=== PATIENT | male | born 1970 | race Caucasian/White ===

== ENCOUNTER 2021-07-24 06:47 | Emergency (ER) | payer OTHER ==
[~2021-07-24] VITALS: Ht 172.7 cm; Wt 93.1 kg
[2021-07-24] MEDS ORDERED: CHLO473M2 PO ×2 (07:30)
[2021-07-24] MEDS ORDERED: ONDANSETRON HCL 4MG/2ML INJ IV STA (07:34)
[2021-07-24] MEDS ORDERED: MORPHINE SULFATE 4 MG/ML CPJ (NOT FOR IM USE) IV STA (07:34)
[2021-07-24] MEDS ORDERED: SODIUM CHLORIDE 0.9% 1,000 ML IV ONE (07:45)
[2021-07-24 07:49] LABS: BASOPHILS % 0.1 % (0.0-2.0); EOSINOPHILS % 2.6 % (0.0-5.0); HEMATOCRIT. 46.6 % (42.0-52.0); HEMOGLOBIN. 16.2 g/dL (14.0-18.0); LYMPHOCYTES % 9.6 % (20.0-50.0); MEAN CORPUSCULAR HEMOGLOBIN 31.5 pg (28.0-32.0); MEAN CORPUSCULAR VOLUME 90.5 fL (80.0-94.0); MEAN PLATELET VOLUME 7.7 fl (7.4-10.4); MONOCYTES % 5.4 % (2.0-8.0); NEUTROPHILS % 82.3 % (40.0-76.0); PLATELET 222 x1000/uL (130-400); RED BLOOD CELL COUNT 5.15 mill/uL (4.7-6.1); RED CELL DISTRIBUTION WIDTH 13.6 % (11.6-14.6)
[2021-07-24 07:55] LABS: CHLORIDE 111 mEq/L (98-107)
[2021-07-24] MEDS ORDERED: MORPHINE SULFATE 4 MG/ML CPJ (NOT FOR IM USE) IV NR (09:02)
[2021-07-24] MEDS ORDERED: ONDANSETRON HCL 4MG/2ML INJ IV NR (09:03)
[2021-07-24 11:00] VITALS: BP 147/98
[2021-07-24] MEDS ORDERED: TOPUD PO (11:16)
[2021-07-24] MEDS ORDERED: ONDA4TAB5 PO (11:17)
== END 2021-07-24 11:37 | disposition home or self-care (01) ==
LOC: ER 06:47
DX: K80.20 Calculus of gallbladder without cholecystitis without obstruction (principal); K76.0 Fatty (change of) liver, not elsewhere classified
CPT/HCPCS: 36415; 74176; 76705; 80053; 83690; 85025; 96361; 96374; 96375; 99285; J2270; J2405; J7030